=== PATIENT | male | born 1985 | race African-American/Black ===

== ENCOUNTER 2021-10-13 00:22 | Emergency (ER) | payer OTHER ==
--- NOTE | 2021-10-13 05:04 | ER ---
Nurse's Notes [facility] Name: Darryn Meraz Age: 36 yrs Sex: Male : 1985 Arrival Date: 10/13/2021 Time: 00:27 Bed 15 Private MD: Diagnosis: Suspected intestinal foreign body without complication Presentation: 10/13 00:30 Chief complaint: Patient states: I swallowed small razor blade. Coronavirus screen: ke1 Vaccine status: Patient reports being unvaccinated. Ebola Screen: No symptoms or risks identified at this time. Initial Sepsis Screen: Does the patient meet any 2 criteria? No. Patient's initial sepsis screen is negative. Does the patient have a suspected source of infection? No. Patient's initial sepsis screen is negative. Risk Assessment: Do you want to hurt yourself or someone else? Patient reports no desire to harm self or others. Onset of symptoms was October 13, 2021. 00:30 Method Of Arrival: Law Enforcement: [place] [employer] ke 00:30 Acuity: MICHEAL 3 ke1 Triage Assessment: 01:00 General: Appears in no apparent distress. Pain: Denies pain. Respiratory: Airway is ke1 patent Trachea midline Respiratory effort is even, unlabored, Respiratory pattern is regular, symmetrical. 01:48 General: Behavior is appropriate for age. ke1 Historical: - Allergies: 01:46 Strawberries; ke1 - PMHx: 01:47 Schizophrenia; ke1 - Immunization history:: Client reports having NOT received the Covid vaccine. - Social history:: Smoking status: Patient/guardian denies using tobacco, the patient reports quitting approximately 1 years ago. - Family history:: not pertinent. - Hospitalizations: : No recent hospitalization is reported. Screenin:48 Abuse screen: Denies threats or abuse. Nutritional screening: No deficits noted. ke1 Tuberculosis screening: No symptoms or risk factors identified. Fall Risk None identified. Assessment: 03:39 Reassessment: Patient appears in no apparent distress at this time. No changes from ke1 previously documented assessment. Patient denies pain at this time. 04:22 Reassessment: No changes from previously documented assessment. ke1 04:49 Reassessment: Patient appears in no apparent distress at this time. No changes from ke1 previously documented assessment. Vital Signs: 00:30 BP 131 / 75; Pulse 67; Resp 18; Temp 98.6; Pulse Ox 96% on R/A; Weight 88.9 kg; Height ke1 5 ft. 5 in. (165.10 cm); Pain 0/10; 00:30 Body Mass Index 32.62 (88.90 kg, 165.10 cm) ke1 ED Course: 00:27 Patient arrived in ED. mw2 00:27 Angel Sherman MD is Attending Physician. rn 00:48 Ross Odell RN is Primary Nurse. ke1 01:06 XRAY KUB In Process Unspecified. EDMS 01:06 XRAY Chest (1 view) In Process Unspecified. EDMS 01:46 Triage completed. ke1 01:48 Arm band placed on. ke1 01:48 Bed in low position. Side rails up X 1. Side rails up X2. alf officers with patient. ke1 02:47 Inserted saline lock: 22 gauge in left antecubital area, using aseptic technique. Blood ll3 collected. 03:22 CT Chest, Abdomen, Pelvis - W/Contrast In Process Unspecified. EDMS 03:39 Ross Odell, RN is Primary Nurse. ke1 04:22 Ross Odell RN is Primary Nurse. ke1 05:13 No provider procedures requiring assistance completed. IV discontinued. ke1 Administered Medications: No medications were administered Medication: 05:14 VIS not applicable for this client. ke1 Outcome: 05:03 Discharge ordered by . rn 05:13 Discharged to alf officers ke1 05:13 Condition: good 05:13 Discharge instructions given to operations officer 05:14 Patient left the ED. ke1 Signatures: Dispatcher [employer] EDDC Angel Sherman MD MD rn [place], MyKena mw2 Avery Porras RN RN ll3 Ross Odell RN RN ke1
--- NOTE | 2021-10-13 05:04 | EDPHYS ---
Physician Documentation [facility] Name: Darryn Meraz Age: 36 yrs Sex: Male : 1985 Arrival Date: 10/13/2021 Time: 00:27 Bed 15 Private MD: ED Physician Angel Sherman HPI: 10/13 01:45 This 36 yrs old Black Male presents to ER via Unassigned with complaints of swallowed a rn razor blade. 01:45 The patient or guardian reports the patient has a suspected foreign body, that has been rn ingested. The reported likely foreign body is razor blade. Onset: The symptoms/episode began/occurred at 18:30. Current symptoms: none. Treatment Prior to Arrival: none. The patient has not experienced similar symptoms in the past. The patient has not recently seen a physician. Pt reports took part of flexible razor blade from razor and swallowed it around 6:30 PM yesterday. Does not have any hemoptysis/blood in stool, no chest pain or abd pain. Reports was only a part of razor blade and "filed down the sharp side" prior to swallowing it.. Historical: - Allergies: 01:46 Strawberries; ke1 - PMHx: 01:47 Schizophrenia; ke1 - Immunization history:: Client reports having NOT received the Covid vaccine. - Social history:: Smoking status: Patient/guardian denies using tobacco, the patient reports quitting approximately 1 years ago. - Family history:: not pertinent. - Hospitalizations: : No recent hospitalization is reported. ROS: 01:45 Constitutional: Negative for fever, chills, and weight loss, Neck: Negative for injury, rn pain, and swelling, Cardiovascular: Negative for chest pain, palpitations, and edema, Respiratory: Negative for shortness of breath, cough, wheezing, and pleuritic chest pain, Abdomen/GI: Negative for abdominal pain, nausea, vomiting, diarrhea, and constipation, Back: Negative for injury and pain, MS/Extremity: Negative for injury and deformity, Skin: Negative for injury, rash, and discoloration, Neuro: Negative for headache, weakness, numbness, tingling, and seizure. Exam: 01:45 Constitutional: This is a well developed, well nourished patient who is awake, alert, rn and in no acute distress. Head/Face: Normocephalic, atraumatic. Cardiovascular: Regular rate and rhythm. No pulse deficits. Respiratory: No increased work of breathing, no retractions or nasal flaring. Abdomen/GI: Soft, non-tender, no peritoneal signs Skin: Warm, dry with normal turgor. Normal color with no rashes, no lesions, and no evidence of cellulitis. Neuro: Awake and alert, GCS 15 Vital Signs: 00:30 BP 131 / 75; Pulse 67; Resp 18; Temp 98.6; Pulse Ox 96% on R/A; Weight 88.9 kg; Height ke1 5 ft. 5 in. (165.10 cm); Pain 0/10; 00:30 Body Mass Index 32.62 (88.90 kg, 165.10 cm) ke1 MDM: 00:27 Patient medically screened. rn 05:02 Data reviewed: vital signs, nurses notes, radiologic studies, CT scan, plain films, and rn as a result, I will discharge patient. Counseling: I had a detailed discussion with the patient and/or guardian regarding: the historical points, exam findings, and any diagnostic results supporting the discharge/admit diagnosis, radiology results, the need for outpatient follow up, to return to the emergency department if symptoms worsen or persist or if there are any questions or concerns that arise at home. ED course: No metallic foreign bodies or evidence of razor blade found on xray or CT, will dc back to skilled nursing, given return precautions. Also, no signs of secondary complication of possible foreign body. . 10/13 00:28 Order name: DAVIN KUB rn 10/13 00:28 Order name: XRAY Chest (1 view) rn 10/13 01:26 Order name: CT Chest, Abdomen, Pelvis - W/Contrast rn Administered Medications: No medications were administered Disposition Summary: 10/13/21 05:03 Discharge Ordered Location: Home rn Problem: new rn Symptoms: are unchanged rn Condition: Stable rn Diagnosis - Suspected intestinal foreign body without complication rn Followup: rn - With: Private Physician - When: As needed - Reason: Recheck today's complaints, Re-evaluation by your physician Discharge Instructions: - Discharge Summary Sheet rn - Swallowed Foreign Body, Adult rn Forms: - Medication Reconciliation Form rn - Thank You Letter rn - Antibiotic mother baby rn - Prescription Opioid Use rn Signatures: Dispatcher [employer] EDAngel Mathew, MD MD rn Ross Odell RN RN ke1
[2021-10-13 05:23] VITALS: BP 131/75; TEMP 98.6; O2SAT 96
--- NOTE | 2021-10-13 14:09 | RAD REPORT ---
EXAM DESCRIPTION: RAD - Chest Single View - 10/13/2021 1:04 am CLINICAL HISTORY: 36 years, Male, swallowed razor blade COMPARISON: None. FINDINGS: Single view of the chest was obtained portable. No prior films are available for compariso n. The cardiomediastinal silhouette demonstrate to be unremarkable. The heart is not enlarged. Th e thoracic aorta is unremarkable. Costophrenic angles are sharp. No areas of consolidation or skip s are seen. The rest of the soft tissue and bony structures demonstrate to be unremarkable. IMPRESSION: NO ACUTE CARDIOPULMONARY DISEASE SEEN. Electronically signed by: Brandon Wong MD 10/13/2021 1:16 AM CDT Due to temporary technical issues with the PACS/Fluency reporting system, reports are being signed by the in house radiologist without review as a courtesy to ensure prompt reporting. The interpreting r adiologist is fully responsible for the content of the report.
--- NOTE | 2021-10-13 14:11 | RAD REPORT ---
EXAM DESCRIPTION: CT - Chest Abdomen Pelvis W Cont - 10/13/2021 5:57 am CLINICAL HISTORY: 36 years Male swallowed razor blade 7 hours ago , neg plain films. TECHNIQUE: CT imaging of the chest, abdomen and pelvis with intravenous contrast administration. Sag ittal and coronal reconstructed images were performed. The CT study is performed according to ALARA ( as low as reasonably achievable) or ALARA/IMAGE GENTLY, with automatic adjustment of mA and/or kV acc ording to patient size. Performed on: 10/13/2021 at 3:17 AM COMPARISON: Plain radiographs of the abdomen and chest performed on 10/13/2021 at 1:03 AM FINDINGS: CHEST: Lungs: The lungs are well expanded and are clear. There are no pleural effusions. There is no pneumot horax. The central airways are patent and are unremarkable. The thoracic esophagus is within normal l imits. Heart: The heart is normal in size. There is no pericardial effusion. Mediastinum: The mediastinum is unremarkable. The mediastinal vessels are normal in caliber and con tour. Bones: No acute osseous abnormalities are identified. Soft tissues: No focal soft tissue abnormalities are identified. No radiopaque metallic foreign raphael s are identified. Lymphadenopathy: No pathologic hilar, mediastinal or axillary lymphadenopathy is identified. ABDOMEN/PELVIS: Liver: The liver is normal in size and configuration. No focal hepatic abnormalities are identified. Liver attenuation is within normal limits. Spleen: The spleen is normal is size, configuration and attenuation. Gallbladder and bile duct: The gallbladder is well distended and unremarkable. There is no biliary ductal dilatation. Pancreas: The pancreas is grossly normal in size and configuration. Adrenal Glands: The adrenal glands are normal in size and configuration. Kidneys: The kidneys are normal in size and configuration. There is no evidence of hydronephrosis. Th ere is no evidence of nephrolithiasis. No definite solid or cystic renal mass lesions are identified. Stomach: The stomach is grossly normal. There is no definite hiatal hernia. Bowel: The bowel gas pattern is non specific and non obstructive. No radiopaque metallic foreign bodi es are identified along the course of the gastrointestinal tract. Appendix: The appendix is normal. Free air: There is no evidence of free air. Free fluid: There is no evidence of free fluid. Vasculature: The aorta is normal in caliber and contour. The inferior vena cava is grossly unremarkab le. Lymphadenopathy: No pathologic lymphadenopathy is identified. Bladder: The bladder is well distended and smooth in contour. Reproductive: The uterus is grossly within normal limits. Bones: No acute osseous abnormalities are identified. There is mild degenerative disc disease at L5-S 1. Soft tissues: No focal soft tissue abnormalities are identified. There are small bilateral fat-contai jose antonio inguinal hernias. IMPRESSION: CT CHEST: 1. No evidence of acute intrathoracic disease. 2. No radiopaque metallic foreign bodies are identified. CT SCAN ABDOMEN AND PELVIS: 1. No evidence of acute intra-abdominal or intrapelvic pathology. 2. No radiopaque metallic foreign bodies are identified along the course of the gastrointestinal tr act. 3. Mild degenerative disc disease at L5-S1. 4. Small bilateral fat-containing inguinal hernias. Electronically signed by: Ariadne Glover DO 10/13/2021 4:58 AM CDT Due to temporary technical issues with the PACS/Fluency reporting system, reports are being signed by the in house radiologist without review as a courtesy to ensure prompt reporting. The interpreting r adiologist is fully responsible for the content of the report.
--- NOTE | 2021-10-13 14:12 | RAD REPORT ---
EXAM DESCRIPTION: RAD - Abdomen 1 View (KUB) - 10/13/2021 1:04 am CLINICAL HISTORY: 36 years, Male, swallowed partial razor blade COMPARISON: None. FINDINGS: 1 X-ray view of the abdomen (supine) was performed. The gas pattern is nondiagnostic. No signs of ileus or obstruction is demonstrated. No areas of abnormal calcifications were identifi ed in either renal fossa. There is no evidence for organomegaly. The psoas shadows demonstrate symmet cb. Bony structures demonstrate be unremarkable. IMPRESSION: Nondiagnostic gas pattern. Electronically signed by: Brandon Wong MD 10/13/2021 1:16 AM CDT Due to temporary technical issues with the PACS/Fluency reporting system, reports are being signed by the in house radiologist without review as a courtesy to ensure prompt reporting. The interpreting r adiologist is fully responsible for the content of the report.
== END 2021-10-13 05:14 | disposition home or self-care (01) ==
LOC: ER 00:22
DX: T18.3XXA Foreign body in small intestine, initial encounter (principal); F20.9 Schizophrenia, unspecified; Z91.018 Allergy to other foods
CPT/HCPCS: 71260; 74177; 74018; 71045; Q9967

== ENCOUNTER 2021-10-15 01:22 | Emergency (ER) | payer OTHER ==
[2021-10-15 02:09] LABS: Absolute Lymphocytes (CBC) 1.4 K/uL (0.7-4.9); Hematocrit 43.4 % (39.6-49.0); Lymphocytes % 20.3 % (15.3-44.8); MCV 89.9 fL (80-100); MPV 8.1 fL (7.6-11.3); RBC Red Blood Cell Count 4.83 M/uL (4.33-5.43)
[2021-10-15] MEDS ORDERED: NA CHLORIDE 0.9% 1,000 ML ONE (02:10)
[2021-10-15 02:13] LABS: Protime INR 1.24
[2021-10-15 02:16] LABS: Barbiturates NEGATIVE (NEGATIVE); Benzodiazepines NEGATIVE (NEGATIVE); Cocaine NEGATIVE (NEGATIVE); METHAMPHETAM NEGATIVE (NEGATIVE); Methadone NEGATIVE (NEGATIVE); Opiates NEGATIVE (NEGATIVE); Phencyclidine NEGATIVE (NEGATIVE); THC Cannibis NEGATIVE (NEGATIVE)
[2021-10-15 02:16] LABS: Urine Blood Trace-intact (Negative); Urine Glucose Negative (Negative); Urine Protein Negative (Negative); Urine Specific Gravity >=1.030 (1.005-1.030)
[2021-10-15 02:29] LABS: ALT/SGPT 30 U/L (12-78); AST/SGOT 18 U/L (15-37); Albumin 3.9 g/dL (3.4-5.0); Alkaline Phosphatase 85 U/L (45-117); BUN Blood Urea Nitrogen 16 mg/dL (7-18); Bicarbonate 26 mmol/L (21-32); Bilirubin Direct < 0.1 mg/dL (0-0.2); Bilirubin Total 0.2 mg/dL (0.2-1.0); Glomerular Filtration Rate 97 ml/min (=/>90); Glucose Level 107 mg/dL (74-106); Potassium 3.4 mmol/L (3.5-5.1); Protein, Total 7.5 g/dL (6.4-8.2); Sodium Level 141 mmol/L (136-145)
--- NOTE | 2021-10-15 03:07 | ER ---
Nurse's Notes [facility] Name: Darryn Meraz Age: 36 yrs Sex: Male : 1985 Arrival Date: 10/15/2021 Time: 01:30 Bed 23 Private MD: Diagnosis: Suicidal ideations-NON TOXIC OVERDOSE;Hypokalemia Presentation: 10/15 01:30 Chief complaint: Patient states: Patient is coming from the [facility] unit he states " I tw5 took about 16 of my psych pills about three or four hours ago." Patient further clarifies " I took eight Abilify and eight Zoloft because I was trying to hurt myself. I also tried to hang earlier today. I need help.". Coronavirus screen: Vaccine status: Patient reports receiving the 2nd dose of the covid vaccine. [employer]. Ebola Screen: Patient negative for fever greater than or equal to 101.5 degrees Fahrenheit, and additional compatible Ebola Virus Disease symptoms Patient denies exposure to infectious person. Patient denies travel to an Ebola-affected area in the 21 days before illness onset. Initial Sepsis Screen: Does the patient meet any 2 criteria? No. Patient's initial sepsis screen is negative. Does the patient have a suspected source of infection? No. Patient's initial sepsis screen is negative. Risk Assessment: Do you want to hurt yourself or someone else? Patient reports desire/thoughts of hurting themselves or someone else. Provider notified. Onset of symptoms was October 14, 2021 at 22:30. 01:30 Method Of Arrival: Law Enforcement: [facility] tw5 01:30 Acuity: MICHEAL 2 tw5 Triage Assessment: 01:36 General: Appears in no apparent distress. Behavior is calm, cooperative, appropriate tw5 for age. Pain: Complains of pain in abdomen Pain currently is 3 out of 10 on a pain scale. Historical: - Allergies: 01:36 Strawberries; tw5 - Home Meds: 01:36 Abilify 20 mg oral tab 1 tab once daily [Active]; Zoloft 200 mg Oral tab 1 tab once tw5 daily [Active]; Benadryl 50 mg Oral cap 1 cap once daily [Active]; - PMHx: 01:36 Schizophrenia; tw5 - PSHx: 01:36 None; tw5 - Immunization history:: Flu vaccine is not up to date. - Social history:: Smoking status: Patient reports the use of cigarette tobacco products, smokes one-half pack cigarettes per day. Screenin:41 Abuse screen: Denies threats or abuse. Denies injuries from another. Nutritional tw5 screening: No deficits noted. Tuberculosis screening: No symptoms or risk factors identified. Fall Risk None identified. Assessment: 01:41 General: Behavior is calm, cooperative, appropriate for age. Neuro: Level of tw5 Consciousness is awake, alert, obeys commands, Oriented to person, place, time, situation. 01:50 Reassessment: spoke to Poison Control with the following recommendations: cardiac bb monitoring, watch for Serotonin syndrome and treat with cyproheptadine if pt develops symptoms of hypothermia, do toxic lab work-up, give supportive care as needed and observe for 8 hours or until pt back to baseline. Case # [id number]. 02:13 Reassessment: Patient is alert, oriented x 3, equal unlabored respirations, skin bb warm/dry/pink. IV site intact, patent, with fluids infusing. [facility] unit guards at bedside. 02:24 Reassessment: pt to X-ray via wheelchair accompanied by [facility] guards and avionics test technician. bb 03:23 Reassessment: Patient is alert, oriented x 3, equal unlabored respirations, skin bb warm/dry/pink. pt given sandwich and soda awaiting completion of IV fluids prior to discharge. Psych: 01:39 [place] Suicide Severity Screening: In the past month, have you wished you were tw5 or wished you could go to sleep and not wake up? Patient responds "yes." "In the past month, have you actually had any thoughts of killing yourself?" Patient responds "yes." "In your lifetime, have you ever done anything, started to do anything, or prepared to do anything to end your life?" Patient responds "yes.". Subjective: Patient's mood is hopeless, Having thoughts of suicide. Plan for suicide is "I tried to hang myself earlier, but that didn't work, so I took my pills instead.". Objective: Patient is cooperative, Speech is normal, Affect is appropriate. Interventions: Removed personal items and placed in bag. Safety Checks: Personal items have been removed. Door is open. Vital Signs: 01:30 BP 143 / 98; Pulse 74; Resp 18; Temp 97.7; Pulse Ox 100% on R/A; Weight 86.18 kg; tw5 Height 5 ft. 7 in. (170.18 cm); Pain 3/10; 02:05 BP 118 / 87; Pulse 68; Resp 18; Pulse Ox 100% on R/A; tw5 02:14 BP 122 / 88; Pulse 69; Resp 18 S; Pulse Ox 100% on R/A; bb 03:24 BP 115 / 77; Pulse 68; Resp 16 S; Pulse Ox 100% on R/A; bb 01:30 Body Mass Index 29.76 (86.18 kg, 170.18 cm) tw5 ED Course: 01:30 Patient arrived in ED. teodoro 01:30 Darius Avilez MD is Attending Physician. teodoro 01:30 [place] is Primary Nurse. tw5 01:36 Triage completed. tw 01:36 Arm band placed on. tw 01:38 Patient has correct armband on for positive identification. Bed in low position. Call tw5 light in reach. Side rails up X2. Security at bedside. Patient in hand cuffs with [employer] officers at the bedside. Currently in the process of getting permission to remove handcuffs to provide care to the patient. Client placed on continuous cardiac and pulse oximetry monitoring. NIBP monitoring applied. Moved to private room. 02:05 No provider procedures requiring assistance completed. Initial lab(s) drawn, by sd, tw sent to lab. Urine collected: clean catch specimen, EKG done, by ED staff, reviewed by Darius Avilez MD. Inserted saline lock: 20 gauge in left antecubital area, using aseptic technique. Blood collected. 02:06 Acetaminophen Sent. tw 02:06 CBC with Diff Sent. tw 02:06 ETOH Level Sent. tw 02:06 CBC with Diff Sent. tw5 02:06 Acetaminophen Sent. tw 02:06 Basic Metabolic Panel Sent. tw 02:06 Hepatic Function Sent. tw 02:07 Basic Metabolic Panel Sent. tw 02:07 Acetaminophen Sent. tw 02:07 PT-INR Sent. tw 02:07 Salicylate Sent. tw 02:07 CBC with Diff Sent. tw 02:07 ETOH Level Sent. tw 02:07 Ptt, Activated Sent. tw5 02:07 Urine Drug Screen Sent. tw5 02:49 C Spine Ap/Lat XRAY In Process Unspecified. EDMS 04:12 IV discontinued, intact, bleeding controlled, No redness/swelling at site. Pressure bb dressing applied. Administered Medications: 02:06 Drug: NS 0.9% 1000 ml Route: IV; Rate: 1 bolus; Site: left antecubital; tw5 03:12 Follow up: IV Status: Completed infusion; IV Intake: 950ml bb 03:12 Drug: Potassium Effervescent Tablet 25 mEq Route: PO; bb 03:25 Follow up: Response: No adverse reaction bb Medication: 02:05 VIS not applicable for this client. tw5 Intake: 03:12 IV: 950ml; Total: 950ml. bb Outcome: 03:07 Discharge ordered by . teodoro 04:11 Discharged to [facility] 04:11 Condition: stable 04:11 Instructed on discharge instructions, follow up and referral plans. Demonstrated understanding of instructions, follow-up care. 04:12 Patient left the ED. bb Signatures: Dispatcher [employer] EDDarius Griffin MD MD cha Ballard, Brenda, RN RN Hoa Benavidez tw5
--- NOTE | 2021-10-15 03:08 | EDPHYS ---
Physician Documentation [facility] Name: Darryn Meraz Age: 36 yrs Sex: Male : 1985 Arrival Date: 10/15/2021 Time: 01:30 Bed 23 Private MD: ED Physician Darius Avilez HPI: 10/15 02:08 This 36 yrs old Black Male presents to ER via Law Enforcement with complaints of teodoro Suicidal Ideation. 02:08 The patient presents to the emergency department with depression, a history of a teodoro suicide gesture, suicide ideation, and the patient has a plan, to hang oneself, to overdose with medications. Onset: The symptoms/episode began/occurred 1 day(s) ago. Past psychiatric history: Prior diagnosis: schizophrenia. Associated signs and symptoms: Pertinent positives; suicide ideation. Severity of symptoms: At their worst the symptoms were mild in the emergency department the symptoms have improved mildly. It is unknown whether or not the patient has had similar symptoms in the past. Historical: - Allergies: 01:36 Strawberries; tw5 - Home Meds: 01:36 Abilify 20 mg oral tab 1 tab once daily [Active]; Zoloft 200 mg Oral tab 1 tab once tw5 daily [Active]; Benadryl 50 mg Oral cap 1 cap once daily [Active]; - PMHx: 01:36 Schizophrenia; tw5 - PSHx: 01:36 None; tw5 - Immunization history:: Flu vaccine is not up to date. - Social history:: Smoking status: Patient reports the use of cigarette tobacco products, smokes one-half pack cigarettes per day. ROS: 02:12 Constitutional: Negative for fever, chills, and weight loss, Eyes: Negative for injury, teodoro pain, redness, and discharge, ENT: Negative for injury, pain, and discharge, Neck: Negative for injury, pain, and swelling, Cardiovascular: Negative for chest pain, palpitations, and edema, Respiratory: Negative for shortness of breath, cough, wheezing, and pleuritic chest pain, Abdomen/GI: Negative for abdominal pain, nausea, vomiting, diarrhea, and constipation, Back: Negative for injury and pain, : Negative for injury, bleeding, discharge, and swelling, MS/Extremity: Negative for injury and deformity, Skin: Negative for injury, rash, and discoloration, Neuro: Negative for headache, weakness, numbness, tingling, and seizure, Psych: Negative for depression, anxiety, suicide ideation, homicidal ideation, and hallucinations, Allergy/Immunology: Negative for hives, rash, and allergies, Endocrine: Negative for neck swelling, polydipsia, polyuria, polyphagia, and marked weight changes, Hematologic/Lymphatic: Negative for swollen nodes, abnormal bleeding, and unusual bruising. Exam: 02:12 Constitutional: This is a well developed, well nourished patient who is awake, alert, teodoro and in no acute distress. Head/Face: Normocephalic, atraumatic. Eyes: Pupils equal round and reactive to light, extra-ocular motions intact. Lids and lashes normal. Conjunctiva and sclera are non-icteric and not injected. Cornea within normal limits. Periorbital areas with no swelling, redness, or edema. ENT: Nares patent. No nasal discharge, no septal abnormalities noted. Tympanic membranes are normal and external auditory canals are clear. Oropharynx with no redness, swelling, or masses, exudates, or evidence of obstruction, uvula midline. Mucous membranes moist. Neck: Trachea midline, no thyromegaly or masses palpated, and no cervical lymphadenopathy. Supple, full range of motion without nuchal rigidity, or vertebral point tenderness. No Meningismus. Chest/axilla: Normal chest wall appearance and motion. Nontender with no deformity. No lesions are appreciated. Cardiovascular: Regular rate and rhythm with a normal S1 and S2. No gallops, murmurs, or rubs. Normal PMI, no JVD. No pulse deficits. Respiratory: Lungs have equal breath sounds bilaterally, clear to auscultation and percussion. No rales, rhonchi or wheezes noted. No increased work of breathing, no retractions or nasal flaring. Abdomen/GI: Soft, non-tender, with normal bowel sounds. No distension or tympany. No guarding or rebound. No evidence of tenderness throughout. Back: No spinal tenderness. No costovertebral tenderness. Full range of motion. Male : Normal genitalia with no discharge or lesions. Skin: Warm, dry with normal turgor. Normal color with no rashes, no lesions, and no evidence of cellulitis. MS/ Extremity: Pulses equal, no cyanosis. Neurovascular intact. Full, normal range of motion. Neuro: Awake and alert, GCS 15, oriented to person, place, time, and situation. Cranial nerves II-XII grossly intact. Motor strength 5/5 in all extremities. Sensory grossly intact. Cerebellar exam normal. Normal gait. Psych: Awake, alert, with orientation to person, place and time. Behavior, mood, and affect are within normal limits. 02:18 ECG was reviewed by the Attending Physician. [facility] Vital Signs: 01:30 BP 143 / 98; Pulse 74; Resp 18; Temp 97.7; Pulse Ox 100% on R/A; Weight 86.18 kg; tw5 Height 5 ft. 7 in. (170.18 cm); Pain 3/10; 02:05 BP 118 / 87; Pulse 68; Resp 18; Pulse Ox 100% on R/A; tw5 02:14 BP 122 / 88; Pulse 69; Resp 18 S; Pulse Ox 100% on R/A; bb 03:24 BP 115 / 77; Pulse 68; Resp 16 S; Pulse Ox 100% on R/A; bb 01:30 Body Mass Index 29.76 (86.18 kg, 170.18 cm) tw5 MDM: 01:30 Patient medically screened. teodoro 02:13 Differential diagnosis: drug withdrawal. Data reviewed: vital signs, nurses notes, lab teodoro test result(s), EKG. Data interpreted: extract operator: rate is 68 beats/min, rhythm is Pulse oximetry: on room air is 100 %. Test interpretation: by ED physician or midlevel provider: ECG. Counseling: I had a detailed discussion with the patient and/or guardian regarding: the historical points, exam findings, and any diagnostic results supporting the discharge/admit diagnosis, lab results, radiology results, the need for outpatient follow up, for definitive care, a psychiatrist. 10/15 01:32 Order name: Acetaminophen; Complete Time: 02:47 teodoro 10/15 01:32 Order name: Basic Metabolic Panel; Complete Time: 02:47 teodoro 10/15 01:32 Order name: CBC with Diff; Complete Time: 02:47 teodoro 10/15 01:32 Order name: ETOH Level; Complete Time: 02:47 teodoro 10/15 01:32 Order name: Hepatic Function; Complete Time: 02:47 teodoro 10/15 01:32 Order name: PT-INR; Complete Time: 02:47 teodoro 10/15 01:32 Order name: Ptt, Activated; Complete Time: 02:47 teodoro 10/15 01:32 Order name: Salicylate; Complete Time: 02:47 teodoro 10/15 01:32 Order name: Urine Drug Screen; Complete Time: 02:47 teodoro 10/15 01:32 Order name: EKG; Complete Time: 01:33 teodoro 10/15 01:32 Order name: C Spine Ap/Lat XRAY [facility] 10/15 02:16 Order name: Urine Dipstick-Ancillary; Complete Time: 02:47 EDMS 10/15 01:32 Order name: EKG - Nurse/Tech; Complete Time: 02:06 [facility] 10/15 01:32 Order name: IV Saline Lock; Complete Time: 02:06 [facility] 10/15 01:32 Order name: Labs collected and sent; Complete Time: 02:06 [facility] 10/15 01:32 Order name: Suicide Precautions; Complete Time: 02:06 [facility] 10/15 01:32 Order name: Suicide Screening ([place]); Complete Time: 02:06 [facility] 10/15 01:32 Order name: Urine Dipstick-Ancillary (obtain specimen); Complete Time: 02: [facility] 10/15 01:32 Order name: Misc. Order: call poison control; Complete Time: 02:02 [facility] EC:18 Rate is 66 beats/min. Rhythm is regular. QRS [place] is Normal. [place] interval is normal. QRS [place] interval is normal. QT interval is normal. No Q waves. T waves are Normal. No ST changes noted. Clinical impression: Normal ECG and No evidence of ischemia. Interpreted by me. Reviewed by me. Administered Medications: 02:06 Drug: NS 0.9% 1000 ml Route: IV; Rate: 1 bolus; Site: left antecubital; tw5 03:12 Follow up: IV Status: Completed infusion; IV Intake: 950ml bb 03:12 Drug: Potassium Effervescent Tablet 25 mEq Route: PO; bb 03:25 Follow up: Response: No adverse reaction bb Disposition Summary: 10/15/21 03:07 Discharge Ordered Location: Home teodoro Problem: new teodoro Symptoms: have improved teodoro Condition: Stable teodoro Diagnosis - Suicidal ideations - NON TOXIC OVERDOSE teodoro - Hypokalemia teodoro Followup: teodoro - With: Private Physician - When: 2 - 3 days - Reason: Recheck today's complaints, Continuance of care, Re-evaluation by your physician Discharge Instructions: - Discharge Summary Sheet teodoro - Potassium Content of Foods teodoro - Suicidal Feelings: How to Help Yourself teodoro - Helping Someone Who is Suicidal teodoro - Stress, Adult teodoro - Hypokalemia teodoro Forms: - Medication Reconciliation Form teodoro - Thank You Letter teodoro - Antibiotic Education teodoro - Prescription Opioid Use teodoro Signatures: Dispatcher [employer] EDDarius Griffin MD MD cha Ballard, Brenda, RN RN Hoa Benavidez tw5
[2021-10-15] MEDS ORDERED: POTASSIUM 25 MEQ EFFERV TAB ONE (03:17)
[2021-10-15 04:23] VITALS: TEMP 97.7; O2SAT 100
[2021-10-15 04:28] VITALS: BP 115/77
--- NOTE | 2021-10-15 12:31 | RAD REPORT ---
EXAM DESCRIPTION: RAD - C Spine Ap/Lat - 10/15/2021 2:47 am CLINICAL HISTORY: PAIN COMPARISON: None. FINDINGS: 3 views of the cervical spine. No acute cortical step-off or subluxation. Vertebral body h eight and intervertebral3 views of the cervical spine. No acute cortical step-off or subluxation. Gabriel tebral body height and intervertebral disc height preserved. Mild endplate spondylosis. No acute jordy ical step-off or subluxation. Prevertebral soft tissues are not widened. Odontoid process is intact. Atlantodental and atlantoaxial intervals are preserved. No fracture visualized ribs. No apical pneumo thoraces. Normal osseous mineralization. IMPRESSION: 1. No acute abnormality of the cervical spine by plain film criteria. Electronically signed by: Anthony Steinberg 10/15/2021 4:57 AM CDT Due to temporary technical issues with the PACS/Fluency reporting system, reports are being signed by the in house radiologists without review as a courtesy to insure prompt reporting. The interpreting radiologist is fully responsible for the content of the report.
--- NOTE | 2021-10-17 13:52 | EKG ---
Test Date: 2021-10-15 Test Time: 01:54:38 Leather Skinner: MARLENE MEASUREMENT RESULTS: Intervals: Rate: 66 [place]: 164 QRSD: 98 QT: 404 QTc: 423 [place]: P: 67 [place]: 164 QRS: 51 T: 46 INTERPRETIVE STATEMENTS: Normal sinus rhythm Normal ECG No previous ECG available for comparison Electronically Signed On 10-17-21 13:47:49 CDT by Carlo Ashby
== END 2021-10-15 04:12 | disposition home or self-care (01) ==
LOC: ER 01:22
DX: T43.592A Poisoning by other antipsychotics and neuroleptics, intentional self-harm, initial encounter (principal); T36.1X2A Poisoning by cephalosporins and other beta-lactam antibiotics, intentional self-harm, initial encounter; R45.851 Suicidal ideations; E87.6 Hypokalemia; F20.9 Schizophrenia, unspecified; F17.210 Nicotine dependence, cigarettes, uncomplicated; Z91.018 Allergy to other foods
CPT/HCPCS: 36415; 72040; 80048; 80076; 80307; 80320; 80329; 81003; 85025; 85610; 85730; 93005; 96360; 99285; J7030

== ENCOUNTER 2021-10-18 17:38 | Emergency (ER) | payer OTHER ==
[2021-10-18 18:29] LABS: Hematocrit 43.6 % (39.6-49.0); MCV 89.5 fL (80-100); MPV 8.1 fL (7.6-11.3); RBC Red Blood Cell Count 4.87 M/uL (4.33-5.43)
--- NOTE | 2021-10-18 18:49 | RAD REPORT ---
EXAM DESCRIPTION: RAD - Abdomen 1 View (KUB) - 10/18/2021 6:42 pm CLINICAL HISTORY: CONSTIPATION Pain COMPARISON: Abdomen 1 View (KUB) dated 10/13/2021 FINDINGS: The bowel gas pattern is non-obstructive. No evidence of free air or pneumatosis. No suspi cious calcifications. No significant bony findings. There is significant retained stool compatible with moderate constipation. IMPRESSION: Moderate constipation.
[2021-10-18 18:50] LABS: ALT/SGPT 41 U/L (12-78); AST/SGOT 21 U/L (15-37); Albumin 3.8 g/dL (3.4-5.0); Alkaline Phosphatase 79 U/L (45-117); BUN Blood Urea Nitrogen 17 mg/dL (7-18); Bicarbonate 27 mmol/L (21-32); Bilirubin Total 0.2 mg/dL (0.2-1.0); Glomerular Filtration Rate 87 ml/min (=/>90); Glucose Level 131 mg/dL (74-106); Potassium 4.1 mmol/L (3.5-5.1); Protein, Total 7.8 g/dL (6.4-8.2); Sodium Level 139 mmol/L (136-145)
[2021-10-18 18:51] LABS: Protime INR 1.22
[2021-10-18 18:52] LABS: Bilirubin Direct < 0.1 mg/dL (0-0.2)
[2021-10-18 18:53] LABS: Urine Blood Negative (Negative); Urine Glucose Negative (Negative); Urine Protein Negative (Negative); Urine Specific Gravity >=1.030 (1.005-1.030); Urine pH 6.5 (5.0-7.0)
--- NOTE | 2021-10-18 19:00 | ER ---
Nurse's Notes [facility] Name: Darryn Meraz Age: 36 yrs Sex: Male : 1985 Arrival Date: 10/18/2021 Time: 17:42 Bed 4 Private MD: Diagnosis: Non-toxic ingestion on unknown tablets Presentation: 10/18 17:42 Chief complaint: Patient states: Pt from [place] [facility], took approx 10 pills of unknown ph medication, states that he got them from another inmate, denies pain, nausea, dizziness, or any other symptoms, also denies SI. Coronavirus screen: Vaccine status: Patient reports receiving the 2nd dose of the covid vaccine. Ebola Screen: No symptoms or risks identified at this time. Initial Sepsis Screen: Does the patient meet any 2 criteria? No. Patient's initial sepsis screen is negative. Does the patient have a suspected source of infection? No. Patient's initial sepsis screen is negative. Risk Assessment: Do you want to hurt yourself or someone else? Patient reports no desire to harm self or others. Onset of symptoms was October 18, 2021. 17:42 Method Of Arrival: Law Enforcement: [place] [employer] 17:42 Acuity: MICHEAL 3 ph Triage Assessment: 17:45 General: Appears in no apparent distress. comfortable, Behavior is calm, cooperative, ph appropriate for age. Pain: Denies pain. Neuro: Level of Consciousness is awake, alert, obeys commands, Oriented to person, place, time, situation. Cardiovascular: Denies chest pain, lightheadedness, shortness of breath, Capillary refill < 3 seconds in bilateral fingers Patient's skin is warm and dry. Respiratory: Airway is patent Respiratory effort is even, unlabored. GI: Patient currently denies abdominal pain, nausea, vomiting. : No signs and/or symptoms were reported regarding the genitourinary system. Derm: Skin is pink, warm \\T\\ dry. Musculoskeletal: Circulation, motion, and sensation intact. Range of motion: intact in all extremities. Historical: - Allergies: 17:45 Strawberries; ph - Home Meds: 17:45 Abilify 20 mg Oral tab 1 tab once daily [Active]; Benadryl 50 mg Oral cap 1 cap once ph daily [Active]; Zoloft 200 mg Oral tab 1 tab once daily [Active]; - PMHx: 17:45 Schizophrenia; ph - Immunization history:: Adult Immunizations up to date. - Social history:: Smoking status: unknown. - Family history:: not pertinent. - Hospitalizations: : No recent hospitalization is reported. Screenin:46 Abuse screen: Denies threats or abuse. Denies injuries from another. Nutritional ph screening: No deficits noted. Tuberculosis screening: No symptoms or risk factors identified. Fall Risk None identified. Assessment: 17:51 Reassessment: SEE TRIAGE ASSESSMENT. ph 18:57 Reassessment: Patient appears in no apparent distress at this time. Patient and/or ph family updated on plan of care and expected duration. Pain level reassessed. Patient is alert, oriented x 3, equal unlabored respirations, skin warm/dry/pink. Overdose: 17:47 [place] Suicide Severity Screening: "In the past month, have you wished you were ph or wished you could go to sleep and not wake up?" Patient responds "yes." Based off client's responses, additional C-SSRS screening questions required. "In the past month, have you actually had any thoughts of killing yourself?" Patient responds "yes." Based off client's responses, additional C-SSRS screening questions required. "In your lifetime, have you ever done anything, started to do anything, or prepared to do anything to end your life?" Patient responds "yes." Patient reports suicidal intent within 3 past months. Patient took approx "10 pills" of unknown medication. Vital Signs: 17:42 BP 127 / 76; Pulse 78; Resp 18; Temp 97.9; Pulse Ox 99% on R/A; Weight 86.18 kg; Height ph 5 ft. 7 in. (170.18 cm); Pain 0/10; 18:57 BP 126 / 78; Pulse 59; Resp 16; Pulse Ox 99% on R/A; ph 17:42 Body Mass Index 29.76 (86.18 kg, 170.18 cm) ph ED Course: 17:42 Patient arrived in ED. ph 17:42 Angel Sherman MD is Attending Physician. rn 17:45 Triage completed. ph 17:45 Arm band placed on Patient placed in an exam room, on a stretcher, on pulse oximetry. ph 17:48 Patient has correct armband on for positive identification. Bed in low position. Call ph light in reach. Side rails up X 1. Pulse ox on. NIBP on. 17:49 Sherry Vuong, MENDY is Primary Nurse. ph 18:44 XRAY KUB In Process Unspecified. EDMS 19:11 Primary Nurse role handed off by Sherry Vuong RN kj1 19:16 Ana Allred, RN is Primary Nurse. kd3 19:19 No provider procedures requiring assistance completed. IV discontinued, intact, kd3 bleeding controlled, No redness/swelling at site. Pressure dressing applied. Administered Medications: 19:16 Drug: Magnesium Citrate Liquid 300 ml Route: PO; kd3 19:20 Follow up: Response: No adverse reaction kd3 Medication: 17:46 VIS not applicable for this client. ph Outcome: 18:59 Discharge ordered by . rn 19:19 Discharged to home ambulatory. kd3 19:19 Condition: stable 19:19 Discharge instructions given to patient, [place] Instructed on discharge instructions, follow up and referral plans. Demonstrated understanding of instructions, follow-up care. 19:21 Patient left the ED. kd3 Signatures: Dispatcher [employer] EDNC Angel Sherman MD MD rn Hall, Patricia, RN RN Layton, Loida kj1 Ana Allred RN RN kd3
--- NOTE | 2021-10-18 19:00 | EDPHYS ---
Physician Documentation [facility] Name: Darryn Meraz Age: 36 yrs Sex: Male : 1985 Arrival Date: 10/18/2021 Time: 17:42 Bed 4 Private MD: ED Physician Angel Sherman HPI: 10/18 17:59 This 36 yrs old Black Male presents to ER via Law Enforcement with complaints of rn Possible Overdose. 17:59 The patient presents to the emergency department with a possible overdose. Context: rn Method: the patient has a confirmed or suspected ingestion, Time: 3 hour(s) ago, the OD/poisoning occurred at intermediate, and was witnessed no one, Previous OD/poisoning history: yes. Associated signs and symptoms: Pertinent negatives: auditory hallucinations, decreased level of consciousness, diaphoresis, diarrhea, dizziness, incontinence, loss of consciousness, nausea, palpitations, shortness of breath, tearfulness, visual hallucinations, vomiting. Severity of symptoms: At their worst the symptoms were none, in the emergency department the symptoms are unchanged. The patient has experienced a previous episode. The patient has been recently seen at the [facility] Emergency Department. Pt presents from intermediate for taking multiple pills, unknown pills, approx 4 hours ago. Thinks approx 9 pills, small, white, tablets. States asked someone for pills and took them without asking what they were. Denies any symptoms. No GI symptoms. Does not feel tired or sleepy. NO sob. Brought in for evaluation. . Historical: - Allergies: 17:45 Strawberries; ph - Home Meds: 17:45 Abilify 20 mg Oral tab 1 tab once daily [Active]; Benadryl 50 mg Oral cap 1 cap once ph daily [Active]; Zoloft 200 mg Oral tab 1 tab once daily [Active]; - PMHx: 17:45 Schizophrenia; ph - Immunization history:: Adult Immunizations up to date. - Social history:: Smoking status: unknown. - Family history:: not pertinent. - Hospitalizations: : No recent hospitalization is reported. ROS: 17:59 Constitutional: Negative for fever, chills, and weight loss, Eyes: Negative for injury, rn pain, redness, and discharge, Neck: Negative for injury, pain, and swelling, Cardiovascular: Negative for chest pain, palpitations, and edema, Respiratory: Negative for shortness of breath, cough, wheezing, and pleuritic chest pain, Abdomen/GI: Negative for abdominal pain, nausea, vomiting, diarrhea, and constipation, Back: Negative for injury and pain, MS/Extremity: Negative for injury and deformity, Skin: Negative for injury, rash, and discoloration, Neuro: Negative for headache, weakness, numbness, tingling, and seizure. Exam: 17:59 Constitutional: This is a well developed, well nourished patient who is awake, alert, rn and in no acute distress. Head/Face: Normocephalic, atraumatic. Eyes: Pupils equal round and reactive to light, extra-ocular motions intact. Periorbital areas with no swelling, redness, or edema. Cardiovascular: Regular rate and rhythm. No pulse deficits. Respiratory: No increased work of breathing, no retractions or nasal flaring. Abdomen/GI: Soft, non-tender Skin: Warm, dry MS/ Extremity: Pulses equal, no cyanosis. Neuro: Awake and alert, GCS 15 18:36 ECG was reviewed by the Attending Physician. rn Vital Signs: 17:42 BP 127 / 76; Pulse 78; Resp 18; Temp 97.9; Pulse Ox 99% on R/A; Weight 86.18 kg; Height ph 5 ft. 7 in. (170.18 cm); Pain 0/10; 18:57 BP 126 / 78; Pulse 59; Resp 16; Pulse Ox 99% on R/A; ph 17:42 Body Mass Index 29.76 (86.18 kg, 170.18 cm) ph MDM: 17:42 Patient medically screened. rn 18:57 Differential diagnosis: Ingestion/exposure to Unknown tablets. Data reviewed: vital rn signs, nurses notes, lab test result(s), radiologic studies, plain films, and as a result, I will discharge patient. Counseling: I had a detailed discussion with the patient and/or guardian regarding: the historical points, exam findings, and any diagnostic results supporting the discharge/admit diagnosis, lab results, radiology results, the need for outpatient follow up, to return to the emergency department if symptoms worsen or persist or if there are any questions or concerns that arise at home. Special discussion: I discussed with the patient/guardian in detail that at this point there is no indication for admission to the hospital. It is understood, however, that if the symptoms persist or worsen the patient needs to return immediately for re-evaluation. ED course: Pt with stable vitals, asymptomatic, no acute findings in bloodwork. Xray abdomen shows constipation. Will dc home. Unknown ingestion but asymptomatic and now about 5 hours post ingestion. Will medically clear and dc back to intermediate.. 10/18 17:47 Order name: Acetaminophen; Complete Time: 18:56 10/18 17:47 Order name: Basic Metabolic Panel; Complete Time: 18:56 10/18 17:47 Order name: CBC with Diff; Complete Time: 18:40 10/18 17:47 Order name: ETOH Level; Complete Time: 18:56 10/18 17:47 Order name: Hepatic Function; Complete Time: 18:56 10/18 17:47 Order name: PT-INR; Complete Time: 18:56 10/18 17:47 Order name: Ptt, Activated; Complete Time: 18:56 10/18 17:47 Order name: Salicylate; Complete Time: 18:56 10/18 17:47 Order name: Urine Drug Screen 10/18 17:47 Order name: EKG; Complete Time: 17:48 10/18 17:47 Order name: EKG - Nurse/Tech; Complete Time: 18:34 10/18 18:03 Order name: XRABBY KUB; Complete Time: 18:56 10/18 18:53 Order name: Urine Dipstick-Ancillary; Complete Time: 18:56 EDNM 10/18 17:47 Order name: IV Saline Lock; Complete Time: 18:34 10/18 17:47 Order name: Labs collected and sent; Complete Time: 18:34 10/18 17:47 Order name: Urine Dipstick-Ancillary (obtain specimen); Complete Time: 19:08 rn EC:36 Rate is 56 beats/min. Rhythm is regular. QRS [place] is Normal. IN interval is normal. QRS rn interval is normal. QT interval is normal. No Q waves. T waves are Normal. No ST changes noted. Clinical impression: Sinus bradycardia. Interpreted by me. Reviewed by me. Administered Medications: 19:16 Drug: Magnesium Citrate Liquid 300 ml Route: PO; kd3 19:20 Follow up: Response: No adverse reaction kd3 Disposition Summary: 10/18/21 18:59 Discharge Ordered Location: Home rn Problem: new rn Symptoms: have improved rn Condition: Stable rn Diagnosis - Non-toxic ingestion on unknown tablets rn Followup: rn - With: Private Physician - When: As needed - Reason: Recheck today's complaints, Re-evaluation by your physician Discharge Instructions: - Discharge Summary Sheet rn - Intentional Drug Overdose rn Forms: - Medication Reconciliation Form rn - Thank You Letter rn - Antibiotic operations intern - Prescription Opioid Use rn Signatures: Dispatcher [employer] EDAngel Mathew MD MD rn Hall, Patricia, RN RN Ana Allred, RN RN kd3 Dayan Rubi PA PA sb3 Corrections: (The following items were deleted from the chart) 18:56 17:59 Pt presents from intermediate for taking multiple pills, unknown pills, approx 3-3.5 rn hours ago. Thinks approx 9 pills, small, white, tablets. States asked someone for pills and took them without asking what they were. Denies any symptoms. No GI symptoms. Does not feel tired or sleepy. NO sob. Brought in for evaluation. . rn
[2021-10-18 19:09] LABS: Barbiturates NEGATIVE (NEGATIVE); Benzodiazepines NEGATIVE (NEGATIVE); Cocaine NEGATIVE (NEGATIVE); METHAMPHETAM NEGATIVE (NEGATIVE); Methadone NEGATIVE (NEGATIVE); Opiates NEGATIVE (NEGATIVE); Phencyclidine NEGATIVE (NEGATIVE); THC Cannibis NEGATIVE (NEGATIVE)
[2021-10-18] MEDS ORDERED: MAGNESIUM CITRATE 300 ML BOT ONE (19:19)
[2021-10-18 19:47] VITALS: TEMP 97.9; O2SAT 99
[2021-10-18 19:48] VITALS: BP 126/78
--- NOTE | 2021-10-19 07:50 | EKG ---
Test Date: 2021-10-18 Test Time: 18:32:34 Casing Inspector: PH MEASUREMENT RESULTS: Intervals: Rate: 56 [place]: 164 QRSD: 88 QT: 416 QTc: 401 [place]: P: 18 [place]: 164 QRS: 11 T: 22 INTERPRETIVE STATEMENTS: Sinus bradycardia Cannot rule out Anterior infarct, age undetermined Abnormal ECG Compared to ECG 10/15/2021 01:54:38 Myocardial infarct finding now present Sinus rhythm no longer present Electronically Signed On 10-19-21 07:48:19 CDT by John Seymour
== END 2021-10-18 19:21 | disposition home or self-care (01) ==
LOC: ER 17:38
DX: T50.911A Poisoning by multiple unspecified drugs, medicaments and biological substances, accidental (unintentional), initial encounter (principal); F20.9 Schizophrenia, unspecified; Z91.018 Allergy to other foods
CPT/HCPCS: 36415; 74018; 80048; 80076; 80307; 80320; 80329; 81003; 85025; 85610; 85730; 93005; 99283